=== PATIENT | female | born 1970 | race Caucasian/White ===

== ENCOUNTER 2025-01-05 08:49 | Outpatient (AMB) | payer OTHER, SELFPAY ==
--- NOTE | 2025-01-05 08:56 | A.OFFPC_ITS ---
Vital Signs 01/05/25 08:58 Height 5 ft 5.04 in Weight 127 lb 4 oz BMI 21.1 BP 129/74 Blood Pressure Location Lt brachial Position Sitting Respiration 12 Pulse 74 Pulse Source Pulse Oximeter Temp 97.7 F Temp Source Oral Pulse Oximetry (%) 97 Oxygen Delivery Method Room Air Intake Visit Reasons: [facility] - Requesting a PE Intake Note: New patient visit Assistant Auditor Required: No Allergies No Known Allergies Allergy (Verified 01/05/25 08:56) Tobacco use date assessed: 01/05/25 Dental Screening Dental Screen Date: 01/05/25 Did you have a dental visit in the last 12 months?: Yes Did you have a dental problem in the last 6 months where you did not have access to dental care?: No Was dental information given to patient?: Patient has dentist HPI [facility] - Requesting a PE HPI Details Pt is a 54 y/o female who presents today to establish care. She has not seen a PCP in a few years. Her PCP retired. She denies any significant past medical history other than congenital hearing loss. She does have hearing aids and is followed by audiology. She states her only concern is the potential for diabetes. Her family has a history of this and she likes to monitor this closely. 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 She tries to eat healthy and remain active. Has 2 grandchildren 4 and 5-month-old. 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 1. Little interest or pleasure in doing things: not at all 2. Feeling down, depressed, or hopeless: not at all 3. Trouble falling or staying asleep, or sleeping too much: not at all 4. Feeling tired or having little energy: not at all 5. Poor appetite or overeating: not at all 6. Feeling bad about yourself - or that you are a failure or have let yourself or your family down: not at all 7. Trouble concentrating on things, such as reading the newspaper or watching television: not at all 8. Moving or speaking so slowly that other people could have noticed. Or the opposite - being so fidgety or restless that you have been moving around a lot more than usual: not at all 9. Thoughts that you would be better off or of hurting yourself in some way: not at all Total score: 0 Depression Screening Interpretation: Negative Depression Screening Done: Yes 08981 - PHQ-9 Billing: Yes Source: Developed by Drs. Edvin Jenkins, Florinda Sun, Carter Perrin and colleagues, with an educational stella from [employer]. Thrive Questionnaire Date Thrive assessed: 01/02/25 I am a: Patient What is your living situation today?: I have a steady place to live Within the past 12 months, did the food you bought not last and you didn't have the money to get more?: Never true Within the past 12 months, did you worry whether your food would run out before you got money to buy more?: Never true Do you have trouble paying for medicines?: No Do you have trouble getting transportation to medical appointments?: No Do you have trouble paying your heating and electricity bill?: No Do you have trouble taking care of your child, family member or friend?: No Do you have trouble with day-to-day activities such as bathing, preparing meals, shopping, managing finances, etc.?: No Are you currently unemployed and looking for a job?: No Are you interested in more education?: No Please select the resources that you would like help with: None Currently or been in a relationship where the following occur: No concerns reported THRIVE Score: 0 AUDIT C Alcohol Use Questionnaire (AUDIT-C) 1. How often do you have a drink containing alcohol?: Never 3. How often do you have six or more drinks on one occasion?: Never Total Score: 0 DILIP-7 AMB Questionnaire DILIP-7 Date DILIP - 7 assessed: 01/05/25 Feeling nervous, anxious, or on edge: 0 = Not at all Not being able to stop or control worryin = Not at all Worrying too much about different things: 0 = Not at all Trouble relaxin = Not at all Being so restless that it is hard to sit still: 0 = Not at all Becoming easily annoyed or irritable: 0 = Not at all Feeling afraid as if something awful might happen: 0 = Not at all Total DILIP-7 score (0-4 normal; 5-9 mild; 10-14 moderate; 15-21 severe): 0 Source: Developed by Drs. Edvin Jenkins, Florinda Sun, Carter Perrin and colleagues, with an educational stella from [employer]. DILIP-7 Assessment Billing DILIP-7 Assessment Tool: DILIP-7 Assessment 53135 Physical exam (Primary Care) Vital Signs: Last Vital Signs Temp 97.7 F 01/05/25 08:58 Pulse 74 01/05/25 08:58 Resp 12 01/05/25 08:58 BP 129/74 01/05/25 08:58 Pulse Ox 97 01/05/25 08:58 Oxygen Delivery Method Room Air 01/05/25 08:58 BMI result Body Mass Index 21.1 Tobacco/Smoking Status: Tobacco use Status Tobacco use date assessed 01/05/25 01/05/25 09:02 Patient Tobacco Use Status Never used Tobacco 01/05/25 09:02 e-Cigarette/Vaping Use Never Used 01/05/25 09:02 PHQ-9: PHQ-9 Score PHQ-9: Total score 0 01/05/25 09:02 Depression Screening Interpretation: Negative Thrive Assessment: Date of Thrive Assessment Date Thrive assessed 01/02/25 01/05/25 09:02 Currently or been in a relationship where the following occur: No concerns reported Const Orientation/consciousness: patient oriented x3 HENMT Ears: hearing grossly normal bilaterally General nose exam: No nasal polyps present Face and sinus: Yes sinuses nontender Mouth: Normal oral and palatal mucosa present Eyes Pupils: Equal, round and reactive pupils present EOM: EOMs intact bilaterally Neck Neck: Yes full ROM and Yes no lymphadenopathy Thyroid: Thyroid normal Lymphatic: no lymphadenopathy noted Chest Chest palpation & inspection: normal inspection of the chest Resp Auscultation: clear to auscultation bilaterally Cardio Rate: regular rate Rhythm: regular rhythm Heart sounds: S1 normal heart sound present and S2 normal heart sound present Peripheral pulses: Peripheral pulses 2+ throughout GI Other: Soft, nontender Inspection: Yes normal to inspection Palpation (GI): Soft to palpation and Other GI palpation findings present (nontender, no cva tenderness) Auscultation: normoactive bowel sounds Rectal Exam - Female: deferred General: Yes no CVA tenderness Back/Spine/Pelvis Other: Nontender Back: no CVA tenderness Skin General skin exam: no rashes or lesions noted Neuro General: patient oriented x3, gait normal and no focal motor deficits Cranial nerves: Yes Equal, round and reactive pupils present Motor exam (neuro): 5/5 motor strength present throughout Sensory Exam: double simultaneous stimulation for sensation normal Coordination: gonvrq-if-rsse test normal and Romberg test negative Extrem General: Yes normal to inspection and Yes full ROM Psych Affect: normal affect Attitude: cooperative Thought process: Normal thought process present Thought content: Normal thought content present Insight: Good insight present (Psych) Judgement: Good judgement present (Psych) Coding Level of Care Code New Pt Prev Care 40-64y(17689) Diagnoses Encounter for routine history and physical examination Z00.00 Congenital hearing loss H90.5 Additional Codes DILIP-7 Assessment Billing - DILIP-7 Assessment Tool: DILIP-7 Assessment 14152 ([id number]) PHQ-9 - 20756 - PHQ-9 Billing: Yes ([id number]) Assessment & Plan Assessment & Plan (1) Encounter for routine history and physical examination: Code(s): Z00.00 - Encounter for general adult medical examination without abnormal findings Plan: reviewed labs ordered bone density ordered mammo managed by apprenticeship training representative utd with apprenticeship training representative (2) Congenital hearing loss: Code(s): H90.5 - Unspecified sensorineural hearing loss Category: Medical Plan: stable Orders: Orders Complete Blood Count Auto Diff Today H90.5 - Unspecified sensorineural hearing loss, Z00.00 - Encounter for general adult medical examination without abnormal findings UA CC w/rflx Micro + Cult Today H90.5 - Unspecified sensorineural hearing loss, Z00.00 - Encounter for general adult medical examination without abnormal findings, Z13.220 - Encounter for screening for lipoid disorders Microalbumin, Random (w Creat) Today H90.5 - Unspecified sensorineural hearing loss, Z00.00 - Encounter for general adult medical examination without abnormal findings XR DEXA axial skeleton Today Z78.0 - Asymptomatic menopausal state Comprehensive Met. Panel Today H90.5 - Unspecified sensorineural hearing loss, Z00.00 - Encounter for general adult medical examination without abnormal findings Lipid Panel Today H90.5 - Unspecified sensorineural hearing loss, Z00.00 - Encounter for general adult medical examination without abnormal findings TSH reflex Free T4 Today H90.5 - Unspecified sensorineural hearing loss, Z00.00 - Encounter for general adult medical examination without abnormal findings Hemoglobin A1c Today R73.01 - Impaired fasting glucose
--- OUTSIDE RECORDS SUMMARY | 2025-01-05 08:56 | XMS_ITS | Clinical Summary ---
Author Organization [facility] Address [address] [place] [address] Phone Care Team Providers Care Branch Operations Coordinator Name Role Phone Bruno España MD Primary Care Provider [phone] Surgical History Surgery Date Site/Laterality Comments BREAST CYST ASPIRATION 07/07/2010 - 07/06/2011 Right x2 bx clips present Social History Tobacco Use Types Packs/Day Years Used Date Smoking Tobacco: Never Assessed Comments No Sex and Gender Information Value Date Recorded Sex Assigned at Not on file Legal Sex Female 10:01 PM EST Gender Identity Not on file Sexual Orientation Not on file Obstetrics History Para Term AB IAB SAB Ectopic Multiple Livin g Live Births 2 Last Filed Vital Signs Vital Sign Reading Time Taken Comments Blood Pressure - - Pulse - - Temperature - - Respiratory Rate - - Oxygen Saturation - - Inhaled Oxygen Concentration - - Weight 61.2 kg (135 lb) 06/01/2024 4:56 PM EST Height 165.1 cm (5' 5 ) 06/01/2024 4:56 PM EST Body Mass Index 22.47 06/01/2024 4:56 PM EST Plan of Treatment Health Maintenance Due Date Last Done Comments DTaP,Tdap,and Td Vaccines (1 - Tdap) 12/26/1987 Hepatitis B Vaccines (1 of 3 - 19+ 3-dose series) 12/26/1987 Cervical Cancer Screening: Pap Smear 1989 Pneumococcal Vaccine: 50+ Years (1 of 1 - PCV) 2018 Colorectal Cancer Screening: Colonoscopy 06/08/2022 Depression Screening 06/08/2022 HIV Screening 06/08/2022 Hepatitis C Screening 06/08/2022 Social Influencers of Health Screening 06/08/2022 Breast Cancer Screening 06/01/2026 06/01/20 24, 05/30/2023, 05/05/2021, Additional history exists Zoster Vaccines Completed 10/04/2022, 05/17/2022 COVID-19 Vaccine Completed 05/21/2024, 05/05/2021 Influenza Vaccine Completed 05/21/2024, 05/17/2022 HIB Vaccines Aged Out No longer eligi ble based on patient's age to complete this topic HPV Vaccines Aged Out No longer eligi ble based on patient's age to complete this topic Hepatitis A Vaccines Aged Out No long er eligible based on patient's age to complete this topic IPV Vaccines Aged Out No longer eligi ble based on patient's age to complete this topic MMR Vaccines Aged Out No longer eligi ble based on patient's age to complete this topic Meningococcal ACWY Vaccine Aged Out N o longer eligible based on patient's age to complete this topic Meningococcal B Vaccine Aged Out No l onger eligible based on patient's age to complete this topic Pneumococcal Vaccine: Pediatrics (0 to 5 Years) and At-Risk Patients (6 to 64 Years) Aged Out No longer eligible based on patient's age to complete this topic RSV Immunization Patients Under 20 months Aged Out No longer eligible based on patient's age to complete this topic Varicella Vaccines Aged Out No longer eligible based on patient's age to complete this topic Procedures Procedure Name Priority Date/Time Associated Diagnosis Comments MG MAMMO DIGITAL SCREENING W RAJESH BILAT Routine 06/01/2024 5:02 PM EST Encounter for screening mammogram for breast cancer from Last 3 Months or Most Recently Relevant to Health Maintenance Results * MG Mammo Digital Screening w Rajesh bilat (06/01/2024 5:02 PM EST) Anatomical Region Laterality Modality Breast Bilateral Mammography 06/01/2024 5:30 PM EST Impressions 06/01/2024 5:31 PM EST Stable mammographic appearance of the breasts. No evidence of malignancy is seen. A negative mammogram in the presence of a clinically suspicious palpable abnormality does not preclude the possibility of malignancy or alter the indications for biopsy. BI-RADS CATEGORY: 1 - NEGATIVE RECOMMENDATION: Screening bilateral mammogram is recommended in 1 year. Mammo Location: [facility], [address] [place] [address], [phone], . -------- FINAL REPORT -------- Dictated By: Pau Alvarenga Dictated Date: 06/01/2024 17:30 ET Assigned Physician: Pau Alvarenga Reviewed and Electronically Signed By: Pau Avlarenga Signed Date: 06/01/2024 17:31 ET Workstation ID: [id number] Transcribed By: Self Edit Transcribed Date: 06/01/2024 17:30 ET Narrative 06/01/2024 5:31 PM EST HISTORY: Screening. Previous right breast biopsies, pathology benign. COMPARISON: 05/30/23, 05/29/22, 05/05/21 and earlier. TECHNIQUE: Bilateral digital breast tomosynthesis was performed in the CC and MLO projections. Computer aided detection with [employer] AI 3D 3.1 was employed. BREAST DENSITY: B - There are scattered areas of fibroglandular density. FINDINGS: No suspicious masses, grouped microcalcifications, or areas of architectural distortion are seen. Biopsy markers are again seen in the right breast. The skin and vascularity are unremarkable. Procedure Note Pau Alvarenga MD - 06/01/2024 HISTORY: Screening. Previous right breast biopsies, pathology benign. COMPARISON: 05/30/23, 05/29/22, 05/05/21 and earlier. TECHNIQUE: Bilateral digital breast tomosynthesis was performed in the CCand MLO projections. Computer aided detection with [employer] AI 3D 3.1was employed. BREAST DENSITY: B - There are scattered areas of fibroglandular density. FINDINGS: No suspicious masses, grouped microcalcifications, or areas ofarchitectural distortion are seen. Biopsy markers are again seen in theright breast. The skin and vascularity are unremarkable. IMPRESSION: Stable mammographic appearance of the breasts. No evidence of malignancyis seen. A negative mammogram in the presence of a clinically suspicious palpableabnormality does not preclude the possibility of malignancy or alter theindications for biopsy. BI-RADS CATEGORY: 1 - NEGATIVE RECOMMENDATION: Screening bilateral mammogram is recommended in 1 year. Mammo Location: [facility], [address] [place] [address], [id number], . -------- FINAL REPORT -------- Dictated By: Pau Alvarenga Dictated Date: 06/01/2024 17:30 ET Assigned Physician: Pau Alvarenga Reviewed and Electronically Signed By: Pau Alvarenga Signed Date: 06/01/2024 17:31 ET Workstation ID: [id number] Transcribed By: Self Edit Transcribed Date: 06/01/2024 17:30 ET us Self Referral Sppl IMG BI PROCEDURES Final Resul t from Last 3 Months or Most Recently Relevant to Health Maintenance Insurance [address] [place] [address] Care Teams Branch Operations Coordinator Relationship Specialty Start Date End Date Bruno España MD [address] [place] [address] [address] [place] [phone] PCP - General Obstetrics and Gynecology 06/01/24
[2025-01-05 08:58] VITALS: BP 129/74; PULSE 74; RESP 12; TEMP 36.5; O2SAT 97; BMI 21.1
== END 2025-01-05 09:27 | disposition home or self-care (01) ==
LOC: HO.HMCFM 08:50
PROVIDERS: PCP Physician Assistant; Visit Provider Physician Assistant
DX: Z00.00 Encounter for general adult medical examination without abnormal findings (principal); H90.5 Unspecified sensorineural hearing loss

== ENCOUNTER → 2025-01-05 08:49 | Outpatient (BNVA) | payer OTHER, SELFPAY | PROVIDERS: PCP Physician Assistant; Visit Provider Physician Assistant | DX: Z00.00 Encounter for general adult medical examination without abnormal findings (principal); H90.5 Unspecified sensorineural hearing loss; R73.01 Impaired fasting glucose; Z78.0 Asymptomatic menopausal state | CPT/HCPCS: 96127 ==

== ENCOUNTER 2025-01-05 09:32 | Outpatient (REF) | payer OTHER, SELFPAY ==
[2025-01-05 11:08] LABS: Appearance Urine Clear; Glucose Urine UA Negative (Negative); PH 7.0 (5.0-9.0); Specific Gravity - Urine <= 1.005 (1.005-1.025)
[2025-01-05 11:57] LABS: MANUAL DIFF FLAG NO
[2025-01-05 12:01] LABS: Hematocrit 41.9 % (37.0-47.0); Hemoglobin 13.7 g/dl (12.0-16.0); Imm Gran Abs Auto 0.02 X10*3/uL (0.00-0.03); Imm Gran Pct Auto 0.3 % (0.0-0.4); Lymphocytes Absolute Auto 2.0 X10*3/uL (1.2-4.9); Mean Corpuscular HGB Conc 32.7 g/dl (31.0-35.0); Mean Corpuscular Hemoglobin 30.2 pg (27.0-33.0); Mean Corpuscular Volume 92.5 fL (80.0-98.0); NRBC Abs Auto 0.000 X10*3/uL (0.0-0.012); NRBC Pct Auto 0.0 /100WBC (0.0-0.2); Platelet Count 260 X10*3/uL (160-400); Red Blood Count 4.53 X10*6/uL (4.20-5.50); White Blood Count 5.9 X10*3/uL (4.8-10.8)
[2025-01-05 12:11] LABS: Hemoglobin A1C 123.8906 umol/L; Total Hemoglobin (HGBA1C) 3498.9068 umol/L
[2025-01-05 12:19] LABS: Alanine Aminotransferase 22 U/L (0-31); Albumin Level 4.6 g/dL (3.5-5.0); Alkaline Phosphatase 69 U/L (39-117); Anion Gap 13 (12-20); Aspartate Amino Transferase 29 U/L (5-31); Blood Urea Nitrogen 16 mg/dL (9-16); Calcium 9.5 mg/dL (8.4-10.2); Carbon Dioxide 29 mmol/L (22-29); Chloride 103 mmol/L (96-108); Cholesterol 183 mg/dL (<200); Estimated Glomerular Filt Rate > 60; HDL Cholesterol 55 mg/dL (>40); Potassium 4.2 mmol/L (3.3-5.1); Sodium 141 mmol/L (135-145); Total Protein 7.6 g/dL (6.5-8.0); Triglycerides 110 mg/dL (<150)
== END 2025-01-05 09:33 | disposition home or self-care (01) ==
LOC: HO.WFDLDS 09:32
PROVIDERS: Visit Provider Physician Assistant
DX: Z00.00 Encounter for general adult medical examination without abnormal findings (principal); R73.01 Impaired fasting glucose; Z13.220 Encounter for screening for lipoid disorders; H90.5 Unspecified sensorineural hearing loss; Z13.6 Encounter for screening for cardiovascular disorders
CPT/HCPCS: 36415; 80053; 80061; 81003; 82043; 82570; 83036; 84443; 85025

== ENCOUNTER 2025-02-08 08:37 | Outpatient (REF) | payer OTHER, SELFPAY ==
--- NOTE | ~2025-02-08 | MM_ITS ---
EXAMINATION: DXA BONE DENSITY AXIAL HISTORY: Z78.0 - Asymptomatic menopausal state TECHNIQUE: [employer] Dual energy absorptiometry (DEXA) of the lumbar spine, total left hip, and femoral neck was performed. COMPARISON: There are no prior studies for comparison. FINDINGS: The bone mineral density of the lumbar spine is 1.025 g/cm2, corresponding to a T-score of -1.3, and a Z-score of -0.2. This is indicative of osteopenia. The bone mineral density of the left total hip is 0.970 g/cm2, corresponding to a T-score of -0.3, and a Z-score of 0.5. This is indicative of normal bone mineral density. The bone mineral density of the left femoral neck is 0.935 g/cm2, corresponding to a T-score of -0.7, and a Z-score of 0.5. This is indicative of normal bone mineral density. FRACTURE RISK: The FRAX index suggests a risk of major osteoporotic fracture of 5.3%, and of hip fracture 0.2%. MM/XR DEXA axial skeleton IMPRESSION: Based on bone mineral density, and according to World Health Organization (WHO) criteria, the diagnosis is consistent with osteopenia. Statistically, 68% of repeat scans fall within 1 SD (+/- 0.010 g/cm2 for AP spine L1-L4) and 1 SD (+/- 0.012 g/cm2 for femur total) FRAX is a trademark of the [employer], a World Health Organization (WHO) Collaborating Center. Electronically signed by: Edvin Barr MD 02/08/2025 09:02 AM EDT
--- OUTSIDE RECORDS SUMMARY | 2025-02-08 08:47 | XMS_ITS | Clinical Summary ---
Author Organization [facility] Address [address] [place] [address] Phone Care Team Providers Care Coke Drawer Hand Name Role Phone Bruno España MD Primary Care Provider [phone] Surgical History Surgery Date Site/Laterality Comments BREAST [...] PCV) 2018 Colorectal Cancer Screening: Colonoscopy 06/08/2022 HIV Screening 06/08/2022 Hepatitis C Screening 06/08/2022 Social Influencers of Health Screening 06/08/2022 Depression Screening 07/07/2024 Influenza Vaccine (#1) 2025 05/21/2024, 2021 Breast Cancer Screening 06/01/2026 06/01/20 24, 05/30/2023, 05/05/2021, Additional history exists Zoster Vaccines Completed 10/04/2022, 05/17/2022 COVID-19 Vaccine Completed 05/21/2024, 05/05/2021 HIB Vaccines Aged Out No longer eligi [...] year. Mammo Location: [facility], [address] [place] [address], [phone], . -------- FINAL REPORT -------- Dictated By: Pau Alvarenga Dictated Date: 06/01/2024 17:30 ET Assigned Physician: Pau Alvarenga Reviewed and Electronically Signed By: Pau Alvarenga Signed Date: 06/01/2024 17:31 ET Workstation ID: [id number] Transcribed By: Self Edit Transcribed Date: 06/01/2024 17:30 ET Narrative 06/01/2024 5:31 PM EST HISTORY: Screening. Previous right breast biopsies, pathology benign. COMPARISON: 05/30/23, 05/29/22, 05/05/21 and earlier. TECHNIQUE: Bilateral digital breast tomosynthesis was performed in the CC and MLO projections. Computer aided detection with [employer] AI 3D 3.1 was employed. BREAST DENSITY: [...] CCand MLO projections. Computer aided detection with [employer] AI 3D 3.1was employed. BREAST DENSITY: B [...] year. Mammo Location: [facility], [address] [place] [address], [phone], . -------- FINAL REPORT -------- Dictated By: Pau Alvarenga Dictated Date: 06/01/2024 17:30 ET Assigned Physician: Pau Alvarenga Reviewed and Electronically Signed By: Pau Alvarenga Signed Date: 06/01/2024 17:31 ET Workstation ID: [id number] Transcribed By: Self Edit Transcribed Date: 06/01/2024 17:30 ET us Self Referral Sppl IMG BI PROCEDURES Final Resul t from Last 3 Months or Most Recently Relevant to Health Maintenance Insurance Care Teams Coke Drawer Hand Relationship Specialty Start Date End Date Bruno España MD [address] [place] [phone] PCP - General Obstetrics and Gynecology 06/01/24
== END 2025-02-08 08:38 | disposition home or self-care (01) ==
LOC: HO.MAMMO 08:37
PROVIDERS: PCP Physician Assistant; Visit Provider Physician Assistant
DX: Z13.820 Encounter for screening for osteoporosis (principal); Z78.0 Asymptomatic menopausal state
CPT/HCPCS: 77080

== ENCOUNTER → 2025-02-08 08:45 | Outpatient (BNV) | payer OTHER, SELFPAY | PROVIDERS: PCP Physician Assistant; Visit Provider Radiology Diagnostic Radiology | DX: E28.39 Other primary ovarian failure (principal) | CPT/HCPCS: 77080 ==